=== PATIENT | female | born 1960 | race Caucasian/White ===

== ENCOUNTER → 2023-11-15 07:15 | Outpatient (REF) | payer MEDICARE, OTHER, SELFPAY | LOC: RAD 07:15 | PROVIDERS: ATTENDING PHYSICIAN Surgery; FAMILY PHYSICIAN Internal Medicine | DX: R93.2 Abnormal findings on diagnostic imaging of liver and biliary tract (principal); K80.20 Calculus of gallbladder without cholecystitis without obstruction | CPT/HCPCS: 78226; A9537 ==

== ENCOUNTER → 2023-11-22 09:44 | Outpatient (REF) | payer MEDICARE, OTHER, SELFPAY | LOC: HWRAD 09:44 | PROVIDERS: ATTENDING PHYSICIAN Surgery; FAMILY PHYSICIAN Internal Medicine | DX: R93.2 Abnormal findings on diagnostic imaging of liver and biliary tract (principal); K80.20 Calculus of gallbladder without cholecystitis without obstruction | CPT/HCPCS: 76700 ==

== ENCOUNTER → 2025-05-18 09:14 | Outpatient (REF) | payer MEDICARE, OTHER, SELFPAY ==
[2025-05-18 11:15] LABS: Hematocrit 38.4 % (37.0-47.0); Hemoglobin 13.2 g/dL (12.0-16.0); Mean Corp Hgb Conc. 34.4 g/dL (33.0-37.0); Mean Corpuscular Volume 93.0 fL (81.0-99.0); Platelet Count 263 10^3/uL (130-400); Red Cell Dist. Width 12.7 % (11.5-14.5)
[2025-05-18 11:31] LABS: ALT (SGPT) 17 U/L (0-35); AST (SGOT) 19 U/L (14-36); Albumin 4.4 g/dl (3.5-5.0); Alkaline Phosphatase 43 U/L (38-126); Blood Urea Nitrogen 18 mg/dl (7-17); Calcium 9.7 mg/dl (8.4-10.2); Carbon Dioxide 28 mmol/L (22-30); Chloride 102 mmol/L (98-107); Glucose 139 mg/dl (70-99); Potassium 4.6 mmol/L (3.5-5.1); Sodium 137 mmol/L (135-145); Total Protein 7.0 g/dl (6.3-8.2); eGFR > 60.00
== END ==
LOC: SDSPAT 09:14
PROVIDERS: ATTENDING PHYSICIAN Surgery; FAMILY PHYSICIAN Internal Medicine
DX: Z01.818 Encounter for other preprocedural examination (principal)
CPT/HCPCS: 36415; 80053; 85027; 93005

== ENCOUNTER 2025-05-28 06:20 | Day surgery (SDC) | payer MEDICARE, OTHER, SELFPAY ==
[2025-05-18 14:05] VITALS: BMI 24.0
[2025-05-28] VITALS (12 sets, daily range): BP systolic 136–158; BP diastolic 60–88; BMI 24.0
[2025-05-28 08:35] LABS: Glucose - Point of Care 156 mg/dl (70-99)
[2025-05-28] MEDS: NORMOSOL-R/PLASMALYTE-A 1000 IV (08:36)
[2025-05-28] MEDS: TYLENOL 1000 MG PO (08:36)
--- NOTE | 2025-05-28 08:47 | W.SUR.PREOP ---
Pre-Operative Surgical Note
-
I have examined this patient prior to the performance of the scheduled procedure.
The patient's condition is unchanged from the time of the current History and
Physical and the patient is able to undergo the scheduled procedure.
--- NOTE | 2025-05-28 11:39 | W.IMMPOSTOP ---
Addendum entered and electronically signed by Guille Powers MD 05/28/25 17:27:
#[id number]
Original Note:
Surgical Immed Post Op Note
-
Primary Surgeon: Guille Powers MD
Assisting Surgeon: Freida Morales PA-C
Pre-op Diagnosis: Chronic calculous cholecystitis
Post-op Diagnosis: Chronic calculous cholecystitis; choledocholithiasis
Procedure Performed: Laparoscopic cholecystectomy with intraoperative cholangiogram
Laparoscopic transcystic common bile duct exploration
Anesthesia Type: GETA +0.25% Marcaine
Specimen / Cultures: Gallbladder
Estimated Blood Loss: 8 mL
Complications: None immediate
Operative Findings: Tensely distended gallbladder filled with thick sludge and stones. Decompressed with suction catheter as sludge was too thick for cyst aspiration needle. Cystic artery and branches controlled with clip. Numerous sludge and
stones impacted in cystic duct. Extracted. Initial cholangiogram with opacification of biliary tree but no emptying into duodenum. Transcystic maneuvers with catheter flushing and administration of glucagon until distal common bile duct and
ampulla visualized and emptying observed. Numerous small flaky gallstones flushed out of cystic duct as well after decompressing common bile duct via cystic duct. Completion cholangiogram with air bubbles but no definitive large persistent stones
or filling defects and there was prompt emptying into the duodenum.
Will bring him postop overnight and advance diet as tolerated with monitoring for biliary symptoms and checking LFTs in AM.
Patient's updated postoperatively via phone call
The assistance of Freida Morales PA-C was required due to the complexity of the procedure. During the procedure Freida Morales PA-C assisted with trocar placement, managing laparoscope for visualization, retracting/holding tissue for exposure, and
closure of the surgical incision sites. I was present for the entirety of the operative procedure.
[2025-05-28 11:42] LABS: Glucose - Point of Care 264 mg/dl (70-99)
[2025-05-28] MEDS: ZOFRAN 4 MG IV (11:51)
[2025-05-28] MEDS: NOVOLOG vial 2 UNITS SC (11:56)
[2025-05-28] MEDS: COMPAZINE 5 MG IV (12:12)
[2025-05-28] MEDS: NSS 1000 IV ×2 (13:30→21:27)
[2025-05-28 16:46] LABS: Glucose - Point of Care 165 mg/dl (70-99)
[2025-05-28] MEDS: LOVENOX 40 MG SC (18:30)
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
[2025-05-28] MEDS: NOVOLOG FLEXPEN-LOW RESISTANCE 1 UNITS SC (19:35)
[2025-05-28] MEDS: TOPROL XL 25 MG PO (21:24)
[2025-05-28 21:31] LABS: Glucose - Point of Care 202 mg/dl (70-99)
[2025-05-29 00:04] VITALS: BP 122/69
[2025-05-29 03:33] VITALS: BP 117/62
[2025-05-29 07:37] LABS: Hematocrit 35.6 % (37.0-47.0); Hemoglobin 12.1 g/dL (12.0-16.0); Mean Corp Hgb Conc. 34.0 g/dL (33.0-37.0); Mean Corpuscular Volume 93.9 fL (81.0-99.0); Platelet Count 240 10^3/uL (130-400); Red Cell Dist. Width 12.9 % (11.5-14.5)
[2025-05-29 07:45] VITALS: BP 140/72
[2025-05-29 07:45] LABS: ALT (SGPT) 175 U/L (0-35); AST (SGOT) 122 U/L (14-36); Albumin 3.8 g/dl (3.5-5.0); Alkaline Phosphatase 59 U/L (38-126); Blood Urea Nitrogen 14 mg/dl (7-17); Calcium 8.6 mg/dl (8.4-10.2); Carbon Dioxide 26 mmol/L (22-30); Chloride 108 mmol/L (98-107); Estimated Creatinine Clearance 79 ml/min; Glucose 137 mg/dl (70-99); Potassium 4.2 mmol/L (3.5-5.1); Sodium 139 mmol/L (135-145); Total Protein 6.2 g/dl (6.3-8.2); eGFR > 60.00
[2025-05-29 08:16] LABS: Glucose - Point of Care 125 mg/dl (70-99)
[2025-05-29 08:38] VITALS: BP 140/72
[2025-05-29] MEDS: GLUCOPHAGE 500 MG PO (08:38)
[2025-05-29] MEDS: PEPCID 20 MG PO (08:38)
[2025-05-29] MEDS: NOVOLOG FLEXPEN-LOW RESISTANCE SC (08:39)
--- NOTE | 2025-05-29 10:02 | W.PN.GS2 ---
Addendum entered and electronically signed by Reed Champino MD 05/29/25 15:30:
I saw and examined the patient.
The TREE FALLER's note was reviewed and I agree with the note.
No overnight events. Tolerating low residue
WBC 8.1, Hb 12.1, Cr 0.6, Tbili 1.0, LFTs 122/175
-Agree with d/c today
Original Note:
Today's Communication / Plan
-
Dispo planning
Assessment / Plan
-
65 yo female with chronic calculous cholecystitis now POD #1 lap julio cesar with IOC and transcystic common bile duct exploration for choledocholithiasis
AFVSS
Bilirubin normal, mild expected transaminitis
No pain with eating
No leukocytosis
Plan:
Continue diet as tolerated
Analgesics as needed
OOB/Ambulate
D/C IVF
Dispo planning
Subjective Data
-
Date of Service: May 29, 2025
Pt seen and examined at bedside with Dr. Tomas. Edil n/v. Tolerating diet. Passing flatus. Some soreness with movement, otherwise comfortable.
Objective Data
-
Intake and Output
05/28/25 05/29/25 05/30/25
06:59 06:59 06:59
Intake Total 1200 / 1200
Output Total 500 / 500
Balance 700 / 700
Intake:
IV fluids (Total) 1200 / 1200
Normosol 300 / 300
Output:
Urine, Voided 500 / 500
Other:
Number of approximated MODERATE 2
amounts of urine
Number of approximated LARGE 2
amounts of urine
Vital Signs
Temp Pulse Resp BP Pulse Ox
97.9 F 56 16 140/72 98
05/29/25 07:45 05/29/25 07:45 05/29/25 07:45 05/29/25 07:45 05/29/25 07:45
Lab Results
05/29/25 06:35
05/29/25 06:35
Calcium 8.6 mg/dl (8.4-10.2) 05/29/25 06:35
Total Bilirubin 1.0 mg/dl (0.2-1.3) 05/29/25 06:35
AST 122 U/L (14-36) H 05/29/25 06:35
ALT 175 U/L (0-35) H 05/29/25 06:35
Alkaline Phosphatase 59 U/L (38-126) 05/29/25 06:35
Total Protein 6.2 g/dl (6.3-8.2) L 05/29/25 06:35
Albumin 3.8 g/dl (3.5-5.0) 05/29/25 06:35
Physical Exam
-
NAD
ABD soft, expected incisional tenderness, nd
Incisions with intact glue, mild ecchymosis, well approximated
[2025-05-29] MEDS: NSS IV (10:03)
--- NOTE | 2025-05-29 10:52 | CM ---
Amirah lives with spouse in a split level home, is independent with adl's and ambulation, no dme, patient drives, home today no needs, spouse to transport.
PCP: Dr Metcalf
Pharmacy: [facility].
== END 2025-05-29 11:10 | disposition home or self-care (01) ==
LOC: SDS 06:20
PROVIDERS: ATTENDING PHYSICIAN Surgery; FAMILY PHYSICIAN Internal Medicine
DX: K80.80 Other cholelithiasis without obstruction (principal); K80.60 Calculus of gallbladder and bile duct with cholecystitis, unspecified, without obstruction; K86.2 Cyst of pancreas
CPT/HCPCS: 47563; 74300; 76000; 80053; 82962; 85027; 88304; 90662; A4300; G0008; J1610